=== PATIENT | male | born 1985 | race Caucasian/White ===

== ENCOUNTER 2016-12-15 17:55 | Emergency (ER) | payer OTHER, BC ==
[2016-12-15 18:23] VITALS: BP 143/80; PULSE 78; TEMP 98.6; BMI 23.8
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
== END 2016-12-15 18:31 | disposition home or self-care (01) ==
LOC: JERFT 17:55 → JER 17:55 → JERFT 18:31
DX: Z04.8 Encounter for examination and observation for other specified reasons (principal); Y35.891A Legal intervention involving other specified means, law enforcement official injured, initial encounter; Y93.89 Activity, other specified; Y92.414 Local residential or business street as the place of occurrence of the external cause; Y99.0 Civilian activity done for income or pay
CPT/HCPCS: 99281-25

== ENCOUNTER 2016-12-15 21:28 | Emergency (ER) | payer BC, OTHER ==
[2016-12-15 21:54] VITALS: BP 155/99; BMI 23.2
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
[2016-12-15 22:50] VITALS: PULSE 87
== END 2016-12-15 22:53 | disposition home or self-care (01) ==
LOC: JER 21:28
DX: Z04.3 Encounter for examination and observation following other accident (principal); I10 Essential (primary) hypertension
CPT/HCPCS: 99281-25

== ENCOUNTER 2018-02-06 02:39 | Emergency (ER) | payer OTHER ==
[2018-02-06 03:27] VITALS: BP 137/94; PULSE 106; TEMP 99; BMI 22.8
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
== END 2018-02-06 03:57 | disposition home or self-care (01) ==
LOC: JER 02:39
DX: Z77.21 Contact with and (suspected) exposure to potentially hazardous body fluids (principal); Y35.811A Legal intervention involving manhandling, law enforcement official injured, initial encounter; Y93.89 Activity, other specified; Y92.89 Other specified places as the place of occurrence of the external cause; Y99.0 Civilian activity done for income or pay; I10 Essential (primary) hypertension
CPT/HCPCS: 99281-25

== ENCOUNTER 2019-03-02 15:23 | Emergency (ER) | payer OTHER ==
[2019-03-02 15:28] VITALS: BP 131/75; PULSE 98; TEMP 97.7; BMI 24.1
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
== END 2019-03-02 16:13 | disposition home or self-care (01) ==
LOC: JERFT 15:23
DX: S16.1XXA Strain of muscle, fascia and tendon at neck level, initial encounter (principal); Y35.891A Legal intervention involving other specified means, law enforcement official injured, initial encounter; V43.52XA Car driver injured in collision with other type car in traffic accident, initial encounter; Y93.89 Activity, other specified; Y92.410 Unspecified street and highway as the place of occurrence of the external cause; Y99.0 Civilian activity done for income or pay; I10 Essential (primary) hypertension
CPT/HCPCS: 99283-25